=== PATIENT | female | born 1990 | race Caucasian/White ===

== ENCOUNTER 2017-04-10 09:26 | Emergency (ER) | payer OTHER ==
[~2017-04-10] VITALS: Ht 157.5 cm; Wt 99.8 kg
[~2017-04-10 09:26] MED LIST: LEVOTHYROXIN0.025 M1 PO; ZITHROMAX Z PA250 MG PO
--- OUTSIDE RECORDS SUMMARY | 2017-04-10 09:31 | External Medical Summary Rpt ---
Author Author , Organization [employer] Address Unknown Phone Unavailable Care Team Providers Care Jointer Operator Name Role Phone Yaya Gaona MD, Unavailable Unavailable Yaya Gaona MD Purpose Continuity of Care Document - 11-01-2013 through 2016 Problems Code Diagnosis DOS Provider Status V15.85 V15.85 11-01-2013 Bob PERSONAL HX [facility] & SUSPECTED EXP HAZARDOUS BODY FLUIDS S61.239A PNCTR W/O FB OF UNSP FINGER W/O DAMAGE TO NAIL, INIT Allergies, Adverse Reactions, Alerts Type Allergy to substance Adverse Reaction to Substance Substance Reaction Severity NO KNOWN ALLERGIES Unknown Unknown Vital Signs 11-01-2013 17:57 Name Value Interpretat Reference Comment ion Range Body 98.2 [degF] Temperature BP 68 mm[Hg] Diastolic BP Systolic 132 mm[Hg] Heart 78 /min Rate/Pulse O2% 98 % Respiratory 18 /min Rate 11-01-2013 17:05 Name Value Interpretat Reference Comment ion Range BP 81 mm[Hg] Diastolic BP Systolic 142 mm[Hg] Heart 91 /min Rate/Pulse O2% 98 % Respiratory 18 /min Rate Results Labs Lab Lab Date Result Refere Interp Status Commen Order Detail nces retati t Range on LIVER PROFILE (11-01-2013 17:10) Prot 7.6 6.4-8.2 complet SerPl-m 014 gm/dL ed Cnc 17:10 Albumin 4.2 3.4-5.0 complet 014 gm/dL ed SerPl-m 17:10 Cnc Bilirub 0.6 0.2-1.0 complet 014 mg/dL ed SerPl-m 17:10 Cnc Bilirub 0.19 0.0-0.2 complet Direct 014 mg/dL ed 17:10 SerPl-m Cnc Bilirub 0.41 0-0.9 complet 014 mg/dL ed Indirec 17:10 t SerPl-m Cnc AST 16 U/L 15-37 complet SerPl-c 014 ed Cnc 17:10 ALT 31 U/L 12-78 complet SerPl-c 014 ed Cnc 17:10 ALP 91 U/L 50-136 complet SerPl-c 014 ed Cnc 17:10 CBC with AUTO DIFF (11-01-2013 17:10) WBC # 11-01-2 8.2 4.8-10. complet Bld 014 K/MM3 8 ed Auto 17:10 RBC # 4.76 4.2-5.4 complet Bld 014 M/mm3 ed Auto 17:10 Hgb 13.4 12.2-16 complet Bld-mCn 014 g/dL .2 ed c 17:10 Hct Fr 38.9 % 37.0-47 complet Bld 014 .0 ed 17:10 MCV RBC 81.8 fl 82.2-97 complet 014 .8 ed 17:10 MCH RBC 28.2 pg 27-31.2 complet Qn 014 ed Auto 17:10 MEAN 34.4 31.8-35 complet CORPUSC 014 g/dl .4 ed ULAR 17:10 HGB CONC RDW RBC 14.4 % 11.5-17 complet Auto 014 .5 ed 17:10 Platele 278 142-424 complet t Bld 014 K/mm3 ed Ql 17:10 Manual MEAN 7.0 fl 7.4-10. complet PLATELE 014 4 ed T 17:10 VOLUME Granulo 60.3 % 37.0-80 complet cytes 014 .0 ed Fr Bld 17:10 Auto LYMPH % 32.7 % 10-50.0 complet 014 ed 17:10 Monocyt 4.9 % 1.7-9.3 complet es Fr 014 ed Bld 17:10 Auto Eosinop 1.8 % 0.1-12. complet hil Fr 014 0 ed Bld 17:10 Auto Basophi 0.4 % 0.1-2.0 complet ls Fr 014 ed Bld 17:10 Auto Granulo 4.9 1.8-7.8 complet cytes # 014 K/mm3 ed Bld 17:10 Auto Lymphoc 2.7 0.7-4.5 complet ytes Fr 014 K/mm3 ed Bld 17:10 Auto Monocyt 0.4 0.1-1.0 complet es # 014 K/mm3 ed Bld 17:10 Auto Eosinop 0.1 0.0-0.4 complet hil # 014 K/mm3 ed Bld 17:10 Auto Basophi 0.0 0-0.2 complet ls # 014 K/MM3 ed Bld 17:10 Auto PROTIME/INR (11-01-2013 16:48) PROTHRO 10.4 9.9-11. complet MBIN 014 SECONDS 6 ed TIME 16:48 INR Bld 0.97 0.9-1.1 complet 014 UNK ed 16:48 ACT PARTIAL THROMBO TIME (11-01-2013 16:48) ACT 28.2 25.3-32 complet PARTIAL 014 SECONDS .0 ed 16:48 THROMBO TIME Encounters Encounter Start End Date Code Location Performer Type Date Emergency RED Gaona MD (ER) 4 16:54 4 17:58 [facility]
--- OUTSIDE RECORDS SUMMARY | 2017-04-10 09:31 | External Medical Summary Rpt ---
Demographics Preferred Language Stateless Marital Status Unknown Zoroastrian Affiliation Unknown Race Unknown Ethnic Group Unknown Author Author , Organization [employer] Address Unknown Phone Unavailable Purpose Continuity of Care Document - through 2016 Immunization No patient found.
--- OUTSIDE RECORDS SUMMARY | 2017-04-10 09:31 | External Medical Summary Rpt ---
Demographics Preferred Language Chinese Marital Status Unknown Jehovah'S Witness Affiliation Unknown Race Unknown Ethnic Group Unknown Author Author , Organization [employer] Address Unknown Phone Unavailable Purpose Continuity of Care Document - through 2016 Immunization No patient found.
--- OUTSIDE RECORDS SUMMARY | 2017-04-10 09:31 | External Medical Summary Rpt ---
Author Author [employer] Organization [employer] Address Unknown Phone Unavailable Purpose Continuity of Care Document - through 2016
--- OUTSIDE RECORDS SUMMARY | 2017-04-10 09:31 | External Medical Summary Rpt ---
Author Author , Organization [employer] Address Unknown Phone Unavailable Care Team Providers Care Propeller Mechanic Name Role Phone Yaya Gaona MD, Unavailable Unavailable Yaya Gaona MD Purpose Continuity of Care Document - 11-01-2013 through 2016 Problems Code Diagnosis DOS Provider Status V15.85 V15.85 11-01-2013 Bob PERSONAL HX [facility] & SUSPECTED EXP HAZARDOUS BODY FLUIDS S61.239A [...] Gaona MD (ER) 4 16:54 4 17:58 [facility]
--- OUTSIDE RECORDS SUMMARY | 2017-04-10 09:32 | External Medical Summary Rpt ---
Author Author GUSTAVO Reyes, LUCHOLISA [employer] Organization [employer] Address Unknown Phone Unavailable Results Thyroxine (T4) free [Mass/volume] in Serum or Plasma Observa Value Referen Units Interpr Notes Date tion ce etation Range Thyroxine 0.76 - ng/dL Normal No Apr 03 (T4) 1.46 informati 2016 free on in 11:40 AM [Mass/vol source ume] in data Serum or Plasma Thyrotropin [Units/volume] in Serum or Plasma Observa Value Referen Units Interpr Notes Date tion ce etation Range Thyrotrop 0.358 - uIU/ml High No Apr 03 in 3.740 informati 2016 [Units/vo on in 11:40 AM lume] in source Serum or data Plasma Choriogonadotropin [Units/volume] in Serum or Plasma Observa Value Referen Units Interpr Notes Date tion ce etation Range Choriogon NEG No No No Apr 03 adotropin informati informati informati 2016 on in on in on in 11:40 AM [Units/vo source source source lume] in data data data Serum or Plasma Comprehensive metabolic 2000 panel in Serum or Plasma Observa Value Referen Units Interpr Notes Date tion ce etation Range Albumin/G 1.1 - 1.8 No Normal No February 21 lobulin informati informati 2016 8:00 [Mass on in on in AM ratio] in source source Serum or data data Plasma Albumin 3.4 - 5.0 gm/dL Normal No February 21 [Mass/vol informati 2016 8:00 ume] in on in AM Serum or source Plasma data Alkaline 46 - 116 U/L Normal No February 21 phosphata informati 2016 8:00 se on in AM [Enzymati source c data activity/ volume] in Serum or Plasma Bilirubin 0.2 - 1.0 mg/dL Normal No February 21 .total informati 2016 8:00 [Mass/vol on in AM ume] in source Serum or data Plasma Urea 7 - 18 mg/dL Normal No February 21 nitrogen informati 2016 8:00 [Mass/vol on in AM ume] in source Serum or data Plasma Calcium 8.5 - mg/dL Normal No February 21 [Mass/vol 10.1 informati 2016 8:00 ume] in on in AM Serum or source Plasma data Chloride 98 - 107 mmoL/L Normal No February 21 [Moles/vo informati 2016 8:00 lume] in on in AM Serum or source Plasma data Carbon 21.0 - mmoL/L Normal February 21 dioxide, 32.0 informati 2016 8:00 total on in AM [Moles/vo source lume] in data Serum or Plasma Creatinin 0.55 - mg/dL High No February 21 e 1.02 informati 2016 8:00 [Mass/vol on in AM ume] in source Serum or data Plasma Estimated 59- ML/MIN No REFERENCE February 21 informati RANGE: 2017 8:00 glomerula on in >60 AM r source ML/MIN/1. filtratio data 73 SQUARE n rate METERSIf (GF this patient is -A merican, then multiply theresult by 1.210. Globulin 1.3 - 3.2 gm/dL High No February 21 [Mass/vol informati 2016 8:00 ume] in on in AM Serum source data Glucose 74 - 106 mg/dL Normal No February 21 [Mass/vol informati 2016 8:00 ume] in on in AM Serum or source Plasma data Potassium 3.5 - 5.1 mmoL/L Normal No February 21 inform2016 8:00 [Moles/vo on in AM lume] in source Serum or data Plasma Sodium 136 - 145 mmoL/L Normal No February 21 [Moles/vo informati 2016 8:00 lume] in on in AM Serum or source Plasma data Aspartate 15 - 37 U/L Low No February 21 informati 2016 8:00 aminotran on in AM sferase source [Enzymati data c activity/ volume] in Serum or Plasma Alanine 12 - 78 U/L Normal No February 21 aminotran informati 2016 8:00 sferase on in AM [Enzymati source c data activity/ volume] in Serum or Plasma Protein 6.4 - 8.2 gm/dL Normal No February 21 [Mass/vol informati 2016 8:00 ume] in on in AM Serum or source Plasma data Lipid 1996 panel in Serum or Plasma Observa Value Referen Units Interpr Notes Date tion ce etation Range Cholester < 200 mg/dL No No February 21 ol informati informati 2016 8:00 [Moles/vo on in on in AM lume] in source source Unspecifi data data ed specimen Cholester 40 - 60 MG/DL Normal No February 21 ol in HDL 2016 8:00 on in AM [Mass/vol source ume] in data Serum or Plasma Cholester 0 - 130 mg/dL Normal No February 21 ol in LDL 2016 8:00 on in AM [Mass/vol source ume] in data Serum or Plasma by calculati on Triglycer 30 - 200 mg/dL Normal No February 21 shelly 2016 8:00 [Moles/vo on in AM lume] in source Serum or data Plasma Cholester 0 - 40 No Normal No February 21 ol in informati inform2016 8:00 VLDL on in on in AM [Mass/vol source source ume] in data data Serum or Plasma Thyrotropin [Units/volume] in Serum or Plasma Observa Value Referen Units Interpr Notes Date tion ce etation Range Thyrotrop 0.358 - uIU/ml High No February 21 in 3.740 inform2016 8:00 [Units/vo on in AM lume] in source Serum or data Plasma CBC W Auto Differential panel in Blood Observa Value Referen Units Interpr Notes Date tion ce etation Range Basophils 0 - 0.2 K/MM3 Normal No February 212016 8:00 [#/volume on in AM ] in source Blood by data Automated count Basophils 0.1 - 2.0 % Normal No February 21 informati 2016 8:00 leukocyte on in AM s in source Blood by data Automated count Eosinophi 0.0 - 0.4 K/mm3 Normal No February 21 ls ati 2016 8:00 [#/volume on in AM ] in source Blood by data Automated count Eosinophi 0.1 - % Normal No February 21 ls/100 12.0 informati 2016 8:00 leukocyte on in AM s in source Blood by data Automated count Granulocy 1.8 - 7.8 K/mm3 Normal No February 21 nirmala ati 2016 8:00 [#/volume on in AM ] in source Blood by data Automated count Granulocy 37.0 - % Normal No February 21 nirmala/100 80.0 informati 2016 8:00 leukocyte on in AM s in source Blood by data Automated count Hematocri 37.0 - % Normal No February 21 t [Volume 47.0 informati 2016 8:00 on in AM Fraction] source of Blood data Hemoglobi 12.2 - g/dL Normal No February 21 n 16.2 informati 2016 8:00 [Mass/vol on in AM ume] in source Blood data Lymphocyt 0.7 - 4.5 K/mm3 Normal No February 21 es informati 2016 8:00 [#/volume on in AM ] in source Unspecifi data ed specimen by Automated count Lymphocyt 10 - 50.0 % Normal No February 21 es informati 2016 8:00 [#/volume on in AM ] in source Unspecifi data ed specimen by Automated count Erythrocy 27 - 31.2 pg Normal No February 21 te mean informati 2016 8:00 corpuscul on in AM ar source hemoglobi data n [Entitic mass] Erythrocy 31.8 - g/dl Normal No February 21 te mean 35.4 informati 2016 8:00 corpuscul on in AM ar source hemoglobi data n concentra tion [Mass/vol ume] by Automated count Erythrocy 82.2 - fl Normal No February 21 te mean 97.8 informati 2016 8:00 corpuscul on in AM ar volume source [Entitic data volume] by Automated count Monocytes 0.1 - 1.0 K/mm3 Normal No February 21 inform2016 8:00 [#/volume on in AM ] in source Blood by data Automated count Monocytes 1.7 - 9.3 % Normal No February 21 /100 informati 2016 8:00 leukocyte on in AM s in source Blood by data Automated count Platelet 7.4 - fl Low No February 21 mean 10.4 informati 2016 8:00 volume on in AM [Entitic source volume] data in Blood by Automated count Platelets 142 - 424 K/mm3 Normal No February 21 informati 2016 8:00 [#/volume on in AM ] in source Blood data Erythrocy 4.2 - 5.4 M/mm3 Normal No February 21 nirmala informati 2016 8:00 [#/volume on in AM ] in source Amniotic data fluid Erythrocy 11.5 - % Normal No February 21 te 17.5 informati 2016 8:00 distribut on in AM ion width source [Entitic data volume] by Automated count Leukocyte 4.8 - K/MM3 Normal No February 21 s 10.8 informati 2017 8:00 [#/volume on in AM ] in source Blood data
--- OUTSIDE RECORDS SUMMARY | 2017-04-10 09:32 | External Medical Summary Rpt ---
Author Author GUSTAVO Reyes, LUCHOLISA [employer] Organization [employer] Address Unknown Phone Unavailable [...]
[2017-04-10] MEDS ORDERED: AMOXICILLIN 50500 MG PO (09:57)
--- NOTE | 2017-04-10 09:58 | Urgent Treatment Center Report ---
History of Present Issue Date/Time Seen by Provider 04/10/17 0944 Visit Reason Pt arrived:Walked Presenting Problem:PT C/O BILATERAL EAR PAIN THAT IS WORSE IN THE LEFT EAR THAT STARTED YESTERDAY Location if Accident: Onset of symptoms date/time:/ or onset unknown for:MEDICAL HX UNKNOWN Have you (or family members/close friends) recently traveled outside the [place]? N If Yes, where/when: Have you had exposure to infectious disease within the past month? TB? Other? Specify: Patient state that she has been having bilateral ear pain. State that pain in her left ear is worse than that in the right. States that pain has continued to worsen over the last few days. State that she put some peroxide in the ear last night but it did not help ALLERGIES Coded Allergies: No Known Allergies (09/02/16) Home Medications Reported Medications Levothyroxine Sodium (Levothyroxine 0.025MG) 0.025 MG PO #30 History Medical History General CAD? No Angina: No [place]: No Hypertension? No Hyperlipidemia? No CHF? No DVT? No PE? No COPD? No Asthma? Yes Anemia? No GERD? No Gastric ulcers? No GI Bleed? No Hernia? No Thyroid Problems? Yes Hypothyroidism? No CVA? No Seizures? No Diabetes? No Renal Insuffiency? No UTI? No Stones? No BPH? No GB Disease: No Nephritic Syndrome? No Asplenia? No Hepatitis? No Sickle Cell Disease? No Arthritis? No Migraines? No Cataracts? No Glaucoma? No MRSA? No HIV? No TB? No Anxiety? No Depression? No Cancer? No More? No Immunization HX DT/Tetanus 1-4 YRS Surgical Hx Previous Surgery?Y Tonsils Family History Family HX CAD No Social History Smoking Hx Smoker: Never Smoker Tobacco: No Alcohol Alcohol: No Review of Systems All Other Systems Reviewed and Negative ENT ear pain. Physical Exam Vital Signs Vital Signs Date Time Temp Pulse Resp B/P Pulse O2 O2 Flow FiO2 Ox Delivery Rate 04/10 0934 97.6 89 16 128/78 98 General Appearance normal appearance, WD/WN, no apparent distress Ear, Nose, Throat left ear red, TM buldging, right ear pink Respiratory Status Yes: trachea midline, chest symmetrical, non tender chest. No: respiratory distress. 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 No Departure Departure Time of Disposition 948 Disposition DC Home or Self Care(routine) Clinical Impression Primary Impression: Otitis media Qualifiers: Otitis media type: unspecified Chronicity: unspecified Laterality: left Qualified Code: H66.92 - Otitis media, unspecified, left ear Condition STABLE Referrals Zheng Abel MD (PCP): 3 Days-Call Office if no improvement in symptoms Patient Instructions DI for Otitis Media (Middle Ear Infection)-Child Additional Instructions Take medictation as prescribed Use warm compressess on ear will help relieve some of the pain Over the counter Motrin or Tylenol for pain or fever Follow up with family doctor Return if needed Discharge Counseling Counseled pt/family regarding diagnosis, medications/RX, home care, follow up needs Prescriptions Current Visit Scripts Amoxicillin Trihydrate (Amoxicillin 500MG) 500 MG PO TID #30 CAP at 0996
[2017-04-10 10:01] VITALS: BP 128/78
== END 2017-04-10 10:02 | disposition home or self-care (01) ==
LOC: UTC 09:26
DX: H66.92 Otitis media, unspecified, left ear (principal)

== ENCOUNTER 2017-07-09 15:35 | Emergency (ER) | payer OTHER ==
[~2017-07-09] VITALS: Ht 157.5 cm; Wt 99.3 kg
--- NOTE | 2017-07-09 16:53 | Urgent Treatment Center Report ---
History of Present Issue Date/Time Seen by Provider 07/09/17 1638 Visit Reason Pt arrived:Walked Presenting Problem:PT STATES SHE FELT A POP IN LEFT WRIST, STATES SHE HASN'T INJURED IT IN ANY WAY Location if Accident: Onset of symptoms date/time:07/08/1710/24/899 or onset unknown for: Have you (or family members/close friends) recently traveled outside the [place]? N If Yes, where/when: Have you had exposure to infectious disease within the past month? TB? Other? Specify: Patient state that she has been having some wrist pain on and off State that she felt like a popping feeling in her left wrist and has been having pain in her wrist ever since States that she does not recall doing anything to cause injury States that she was sent down to get checked out for wrist pain ALLERGIES Coded Allergies: No Known Allergies (09/02/16) Home Medications Active Scripts Amoxicillin Trihydrate (Amoxicillin 500MG) 500 MG PO TID #30 CAP Prov: 04/10/17 Reported Medications Levothyroxine Sodium (Levothyroxine 0.025MG) 0.025 MG PO #30 History Medical History General CAD? No Angina: No [place]: No Hypertension? No Hyperlipidemia? No CHF? No DVT? No PE? No COPD? No Asthma? Yes Anemia? No GERD? No Gastric ulcers? No GI Bleed? No Hernia? No Thyroid Problems? Yes Hypothyroidism? No CVA? No Seizures? No Diabetes? No Renal Insuffiency? No UTI? No Stones? No BPH? No GB Disease: No Nephritic Syndrome? No Asplenia? No Hepatitis? No Sickle Cell Disease? No Arthritis? No Migraines? No Cataracts? No Glaucoma? No MRSA? No HIV? No TB? No Anxiety? No Depression? No Cancer? No More? No Immunization HX DT/Tetanus 1-4 YRS Surgical Hx Previous Surgery?Y Tonsils Family History Family HX CAD No Social History Smoking Hx Smoker: Never Smoker Tobacco: No Alcohol Alcohol: No Review of Systems All Other Systems Reviewed and Negative Comment Pain in left wrist no swelling and no known injury, more painful when she tries to move wrist up and down or side to side Physical Exam Vital Signs Vital Signs Date Time Temp Pulse Resp B/P Pulse O2 O2 Flow FiO2 Ox Delivery Rate 07/09 1707 98.2 95 20 128/78 100 07/09 1608 98.2 95 20 128/78 100 General Appearance normal appearance, WD/WN, no apparent distress Respiratory Status Yes: trachea midline, chest symmetrical, non tender chest. No: respiratory distress. Cardiovascular normal exam, regular rate/rhythm Extremities Positive phalens test pain felt, no swelling no discoloration, good pulses. good cap refill, no temperature differences describes pain as sharp with movement Neurologic alert, normal exam, oriented x 3 Medical Decision Making LABS/Meds/Orders Pt receiving controlled substance in ED? No Results/Orders Orders Procedure Date/time Status WRIST-3 VIEWS-LT 07/09 1644 Active XRAY/CT/US XRAY/CT/US XRAY wrist XR interpretation by reviewed by me Xray Results no fracture seen Comment Discussed with Dr Dhillon no fracture seen Departure Departure Time of Disposition 1712 Disposition DC Home or Self Care(routine) Clinical Impression Primary Impression: Wrist pain Qualifiers: Laterality: left Qualified Code: M25.532 - Pain in left wrist Condition STABLE Referrals Colten RAZA,Zheng Warren (Family) Katerina RAZA,Jed LOMELI MD, LEVI HERNANDES Patient Instructions DI for Wrist Pain Additional Instructions Use splint as advised Follow up with Orthopedics if pain persists or worsenes Follow up with family doctor Return if needed Over the counter Motrin or Tylenol as needed for pain Discharge Counseling Counseled pt/family regarding diagnosis, test results, home care, follow up needs at 1711
[2017-07-09 17:07] VITALS: BP 128/78
--- NOTE | 2017-07-09 17:33 | RADIOLOGY REPORT PS360 ---
WRIST-3 VIEWS-LT HISTORY: wrist painpain on left wrist popping on Sunday with persistent pain Patient Age: 27 years: Female Ordering Physician: ELIAS BEDOYA APRN TECHNIQUE: 3 views r left wrist COMPARISON :Left hand 3 views 2007 FINDINGS Mild undulation is seen about the base the radial styloid in the region of the old close growth plate.. I believe this is intact with no good evidence of fracture. Fat plane anterior to the wrist appears normal. Navicular appears normal. The patient does have a slight ulnar minus anatomical variation at the wrist. This is where the ulna is relatively short compared to the radius and can be associated with pain patterns IMPRESSION: No acute fracture or findings at wrist. . Negative ulnar variance incidentally noted.. Anatomical variant If. Pain persist progress consider orthopedic follow-up
--- OUTSIDE RECORDS SUMMARY | 2017-07-19 04:56 | External Medical Summary Rpt | CCD ---
Author Author , [employer] Address Unknown Phone Care Team Providers Care Shake Loader Name Role Phone Yaya Gaona MD, Unavailable Unavailable Yaya Gaona MD Purpose Continuity of Care Document - 11-01-2013 through 2016 Problems Code Diagnosis DOS Provider Status V15.85 V15.85 11-01-2013 Bob PERSONAL HX [facility] & SUSPECTED EXP HAZARDOUS BODY FLUIDS Allergies, Adverse Reactions, Alerts Type Allergy to [...] with AUTO DIFF (11-01-2013 17:10) WBC # 11-01- 8.2 4.8-10. complet Bld 014 K/MM3 8 ed Auto 17:10 RBC # 11-01- 4.76 4.2-5.4 complet Bld 014 M/mm3 ed [...] Gaona MD (ER) 4 16:54 4 17:58 [facility]
--- OUTSIDE RECORDS SUMMARY | 2017-07-19 04:56 | External Medical Summary Rpt | CCD ---
Author Author , GUSTAVO CHEN Address Unknown Phone [email or web address] Care Team Providers Care Elevator Repairer Helper Name Role Phone Yaya Gaona MD, Unavailable Unavailable Yaya Gaona MD Purpose Continuity of Care Document - 11-01-2013 through 2016 Problems Code Diagnosis DOS Provider Status V15.85 V15.85 11-01-2013 Bob PERSONAL HX [facility] & SUSPECTED EXP HAZARDOUS BODY [...] Gaona MD (ER) 4 16:54 4 17:58 [facility]
--- OUTSIDE RECORDS SUMMARY | 2017-07-19 04:56 | External Medical Summary Rpt ---
Author Author GUSTAVO Reyes, LUCHOLISA [employer] Address Unknown Phone Unavailable Results Thyroxine (T4) free [Mass/volume] in Serum or Plasma Observa Value Referen Units Interpr Notes Date tion ce etation Range Thyroxine 0.76 - ng/dL Normal No May 31 (T4) 1.46 informati 2016 4:38 free on in PM [Mass/vol source ume] in data Serum or Plasma Thyrotropin [Units/volume] in Serum or Plasma Observa Value Referen Units Interpr Notes Date tion ce etation Range Thyrotrop 0.358 - uIU/ml Low No May 31 in 3.740 informati 2016 4:38 [Units/vo on in PM lume] in source Serum or data Plasma Thyroxine (T4) free [Mass/volume] in Serum or Plasma Observa Value Referen Units Interpr Notes Date ti ce etation Range Thyroxine 0.76 - ng/dL Normal No Apr 03 (T4) 1.46 informati 2016 free on in 11:40 AM [Mass/vol source ume] in data Serum or Plasma Thyrotropin [Units/volume] in Serum or Plasma Observa Value Referen Units Interpr Notes Date tion ce etation Range Thyrotrop 0.358 - uIU/ml High No Apr 03 in 3.740 inform2016 [Units/vo on in 11:40 AM lume] in source Serum or data Plasma Choriogonadotropin [Units/volume] in Serum or Plasma Observa Value Referen Units Interpr Notes Date ti ce etation Range Choriogon NEG No No No Apr 03 adotropin informati informati informati 2016 on in on in on in 11:40 AM [Units/vo source source source lume] in data data data Serum or Plasma Comprehensive metabolic 2000 panel in Serum or Plasma Observa Value Referen Units Interpr Notes Date ti ce etation Range Albumin/G 1.1 - 1.8 [...] Plasma data Carbon 21.0 - mmoL/L Normal No February 21 dioxide, 32.0 informati 2016 8:00 [...] - 5.1 mmoL/L Normal No February 21 informati 2016 8:00 [Moles/vo on in AM lume] in source Serum or data Plasma Sodium 136 - 145 mmoL/L Normal No February 21 [Moles/vo informati 2016 8:00 lume] in on in AM Serum or source Plasma data Aspartate 15 - 37 U/L Low No February 212016 8:00 aminotran on in AM sferase source [Enzymati data c activity/ volume] in Serum or Plasma Alanine 12 - 78 U/L Normal No February 21 aminotran inform2016 8:00 sferase on in AM [Enzymati source [...] Normal No February 21 ol in HDL informati 2016 8:00 on in AM [Mass/vol source [...] Normal No February 21 ol in informati informati 2016 8:00 VLDL on in on in AM [Mass/vol source source ume] in data data Serum or Plasma Thyrotropin [Units/volume] in Serum or Plasma Observa Value Referen Units Interpr Notes Date tion ce etation Range Thyrotrop 0.358 - uIU/ml High No February 21 in 3.740 informati 2016 8:00 [Units/vo on in AM lume] in source Serum or data Plasma CBC W Auto Differential panel in Blood Observa Value Referen Units Interpr Notes Date tion ce etation Range Basophils 0 - 0.2 K/MM3 Normal No February 21 inform2016 8:00 [#/volume on in AM ] in source Blood by data Automated count Basophils 0.1 - 2.0 % Normal No February 21 / informati 2016 8:00 leukocyte on in AM s in source Blood by data Automated count Eosinophi 0.0 - 0.4 K/mm3 Normal No February 21 ls informati 2016 8:00 [#/volume on in AM ] in source Blood by data Automated count Eosinophi 0.1 - % Normal No February 21 ls/100 12.0 informati 2016 8:00 leukocyte on in AM s in source Blood by data Automated count Granulocy 1.8 - 7.8 K/mm3 Normal No February 21 nirmala informati 2016 [...] - 1.0 K/mm3 Normal No February 21 informati 2016 8:00 [#/volume on in AM ] in source Blood by data Automated count Monocytes 1.7 - 9.3 % Normal No February 21 / informati 2016 8:00 leukocyte on in AM [...] data fluid Erythrocy 11.5 - % Normal February 21 te 17.5 informati 2016 8:00 distribut on in AM ion width source [Entitic data volume] by Automated count Leukocyte 4.8 - K/MM3 Normal February 21 s 10.8 informati 2016 8:00 [#/volume on in AM ] in source Blood data
--- OUTSIDE RECORDS SUMMARY | 2017-07-19 04:56 | External Medical Summary Rpt ---
Author Author GUSTAVO Reyes, LUCHOLISA [employer] Address Unknown Phone Unavailable [...]
--- OUTSIDE RECORDS SUMMARY | 2017-07-19 04:56 | External Medical Summary Rpt | CCD ---
Demographics Preferred Language [place] Marital Status Unknown Bahai Affiliation Unknown Race Unknown Ethnic Group Unknown Author Author , GUSTAVO CHEN Address Unknown Phone Immunization No patient found.
--- OUTSIDE RECORDS SUMMARY | 2017-07-19 04:56 | External Medical Summary Rpt | CCD ---
Demographics Preferred Language [place] Marital Status Unknown Zoroastrian Affiliation Unknown Race Unknown Ethnic Group Unknown Author Author , GUSTAVO CHEN Address Unknown Phone Immunization No patient found.
== END 2017-07-09 17:17 | disposition home or self-care (01) ==
LOC: UTC 15:35
PROC: 2W3DX1Z Immobilization of Left Lower Arm using Splint (ICD-10-PCS; principal; 2017-07-09)
DX: M25.532 Pain in left wrist (principal); J45.909 Unspecified asthma, uncomplicated

== ENCOUNTER → 2017-07-30 | Outpatient (CLI) | payer OTHER ==
[~2017-07-30] MED LIST changes: +AMOXICILLIN 50500 MG PO
== END ==
LOC: LAB 14:04
DX: E03.9 Hypothyroidism, unspecified (principal)